=== PATIENT | male | born 1960 | race Caucasian/White ===

== ENCOUNTER → 2019-04-08 | Outpatient (CLI) | payer OTHER | LOC: CAT 08:16 | DX: Z13.6 Encounter for screening for cardiovascular disorders (principal); E78.00 Pure hypercholesterolemia, unspecified; I25.10 Atherosclerotic heart disease of native coronary artery without angina pectoris ==

== ENCOUNTER → 2020-12-28 | Outpatient (CLI) | payer OTHER ==
[~2020-12-28] MED LIST: CHILDREN'S ASPI81 M1 PO; GLUCOPHAGE1000 MG PO; LOSARTAN POTAS100 MG PO; MULTIVITAMINS PO; ROSUVASTATIN CA40 MG PO; VITAMIN C500 M1 PO
== END ==
LOC: LAB 09:50
PROVIDERS: ATTEND Orthopaedic Surgery
DX: Z01.812 Encounter for preprocedural laboratory examination (principal); Z20.822 Contact with and (suspected) exposure to COVID-19

== ENCOUNTER 2021-01-03 06:28 | Observation (INO) | payer OTHER ==
[2020-12-28 09:43] LABS: URINE BILIRUBIN NEGATIVE (Negative); URINE BLOOD NEGATIVE (Negative); URINE CLARITY CLEAR; URINE COLOR YELLOW; URINE GLUCOSE-RANDOM* NEGATIVE (Negative); URINE KETONES NEGATIVE (Negative); URINE LEUKOCYTES-REFLEX NEGATIVE (Negative); URINE NITRITE-REFLEX NEGATIVE (Negative); URINE PROTEIN (DIPSTICK) NEGATIVE (Negative); URINE UROBILINOGEN 0.2 E.U./dl (0.2-1.0)
[2020-12-28 09:47] LABS: HEMATOCRIT 39.7 % (42.0-52.0); HEMOGLOBIN 13.6 gm/dL (14.0-18.0); MCHC 34.3 g/dL (28.0-37.0); MCV 99.2 fL (80.0-100.0); RDW 12.1 % (10.5-14.5); WBC 3.1 thou/uL (4.0-11.0)
[2020-12-28 10:02] LABS: ALBUMIN 4.1 g/dL (3.4-5.0)
[2020-12-28 10:10] LABS: PROTIME 11.4 Seconds (9.3-11.4)
--- NOTE | 2020-12-28 13:26 | EKG ---
[place] [address] [address] [facility] [place] [address] ELECTROCARDIOGRAM REPORT Name: KALPANA FALK Room #: [facility]#: [id number] Admission: Attend Phys: Vic Briones MD Discharge: Date of : 56 Report #: [id number] [facility] Test Date: 2020-12-28 Test Time: 09:26:53 Pat Name: KALPANA FALK Department: Room: Gender: M Binitrotoluene Operator: Akin PERRIN : 1960 Requested By: Vic Briones Order Number: [id number] MD: Kirill Lwa Measurements Intervals [place] Rate: 75 P: 69 ME: 151 QRS: 42 QRSD: 75 T: 38 QT: 362 QTc: 405 Interpretive Statements Sinus rhythm Borderline low voltage, extremity leads RSR' in V1 or V2, right VCD or RVH Borderline ST elevation, anterior leads Baseline wander in lead(s) V1 No previous ECG available for comparison Electronically Signed On 12-28-2020 13:26:23 DIRECTOR ECONOMIC by Kirill Law [email or web address] <ELECTRONICALLY SIGNED> By: Kirill Law MD, [facility] 12/28/20 1326 5 5 Kirill Law MD, [facility] /EPI
[2020-12-28 23:06] LABS: GLYCOHEMOGLOBIN (HGB A1C) 5.9 % (4.8-5.6)
[~2021-01-03] VITALS: Ht 180.3 cm; Wt 81.6 kg
[2021-01-03] VITALS (12 sets, daily range): BP systolic 137–163; BP diastolic 86–100
--- NOTE | ~2021-01-03 | TEE ---
[facility] [address] [place] [address] TRANSESOPHAGEAL ECHOCARDIOGRAM Name: KALPANA FALK Room #: [facility] Hester#: [id number] Admission: 01/03/21 Attend Phys: Vic Briones MD Discharge: 01/04/21 Date of : 56 Report #: [id number] THIS REPORT FOR: cc: Vic Chowdary MD, David P. MD Park, Jin S. MD ~ APPROVED REPORT Study performed: 01/04/2021 08:32:04 EXAM: Comprehensive 2D, Doppler, and color-flow Echocardiogram Patient Location: Bedside Room #: [facility] Status: routine BSA: 2.00 HR: 70 bpm BP: 166/78 mmHg Rhythm: NSR Other Information Study Quality: Good Indications Status post PCI. Heart block, gary. 2D Dimensions RVDd: 33.42 mm IVSd: 9.51 (7-11mm) LVOT Diam: 23.49 (18-24mm) LVDd: 47.36 mm PWd: 10.27 (7-11mm) Ascending Ao: 40.65 (22-36mm) LVDs: 31.19 (25-40mm) Left Atrium: 35.07 (27-40mm) Aortic Root: 39.46 mm Volumes Left Atrial Volume (Systole) Single Plane 4CH: 27.06 mL Single Plane 2CH: 43.87 mL LA ESV Index: 20.00 mL/m2 Aortic Valve AoV Peak Brendan.: 1.20 m/s AO Peak Gr.: 5.73 mmHg LVOT Max P.46 mmHg LVOT Max V: 1.06 m/s ELIZABETH Vmax: 3.82 cm2 [facility] [address] [address] TRANSESOPHAGEAL ECHOCARDIOGRAM Name: KALPANA FALK Room #: 205-P [facility].#: [id number] Admission: 01/03/21 Attend Phys: Jaleesa Delgado Discharge: 01/04/21 Date of : 56 Report #: [id number] Mitral Valve E/A Ratio: 1.8 MV Decel. Time: 169.24 ms MV E Max Brendan.: 0.85 m/s MV A Brendan.: 0.48 m/s MV PHT: 49.08 ms IVRT: 92.27 ms Pulmonary Valve PV Peak Brendan.: 1.00 m/s PV Peak Gr.: 4.03 mmHg Pulmonary Vein P Vein S: 0.61 m/s P Vein A: 0.28 m/s P Vein D: 0.56 m/s P Vein A Dur.: 133.8 msec P Vein S/D Ratio: 1.09 Tricuspid Valve TR Peak Brendan.: 2.40 m/s RAP Estimate: 5.00 mmHg TR Peak Gr.: 23.10 mmHg PA Pressure: 28.00 mmHg Left Ventricle The left ventricle is normal size. There is normal LV segmental wall motion. There is normal left ventricular wall thickness. Left ventricular systolic function is normal. LVEF is 60-65%. Right Ventricle The right ventricle is normal size. The right ventricular systolic function is normal. Atria The left atrium size is normal. The right atrium size is normal. Aortic Valve The aortic valve is normal in structure. No aortic regurgitation is present. There is no aortic valvular stenosis. Mitral Valve The mitral valve is normal in structure. Trace mitral regurgitation. No evidence of mitral valve stenosis. Tricuspid Valve The tricuspid valve is normal in structure. Mild tricuspid regurgitation. Estimated PAP is 25-30mmHg. [facility] [address] [place] [address] TRANSESOPHAGEAL ECHOCARDIOGRAM Name: KALPANA FALK Room #: [facility] ..#: [id number] Admission: 01/03/21 Attend Phys: Jaleesa Delgado Discharge: 01/04/21 Date of : 56 Report #: [id number] Pulmonic Valve The pulmonary valve is normal in structure. Trace pulmonic regurgitation. Great Vessels Aortic root is mildly dilated (3.9cm). Ascending aorta is dilated (4.1cm). IVC is normal in size and collapses >50% with inspiration. Pericardium There is no pericardial effusion. <Conclusion> The left ventricle is normal size. There is normal left ventricular wall thickness. Left ventricular systolic function is normal. The right ventricle is normal size. The left atrium size is normal. The aortic valve is normal in structure. Trace mitral regurgitation. By: 4 Steven Chadwick MD /INF
--- NOTE | 2021-01-03 10:20 | O ---
[facility] [place] [address] OPERATIVE REPORT Name: KALPANA FALK Room #: 150-8 [facility]..#: [id number] Admission: 01/03/21 Attend Phys: Vic Briones MD Discharge: Date of : 56 Report #: [id number] THIS REPORT FOR: cc: Vic Chowdary MD, David P. MD Clymer, David J. MD ~ DATE OF SERVICE: 01/03/2021 PREOPERATIVE DIAGNOSIS: End-stage degenerative arthritis, right hip. POSTOPERATIVE DIAGNOSIS: 1. End-stage degenerative arthritis, right hip. 2. Sudden transient complete heart block. Procedure was terminated, planned right total hip replacement prior to initiating surgery due to new sudden cardiac arrhythmia. HISTORY: This 60-year-old gentleman states that he is generally fit and healthy and has no history of heart disease nor history of chest pain or arrhythmia in the past. I believe his mother does have a history of arrhythmia, but there is no other significant family history. He does have degenerative arthritis with previous left total knee and also previous low back surgery. He is brought to the operating room at this time for planned right total hip replacement. PROCEDURE: The patient was placed under general anesthetic and prophylactic intravenous antibiotics were administered. He seemed to have no problems at this point. He was then turned to the left lateral decubitus position. We were in the process of positioning and padding and preparing to prep the left hip. At this point, he had a sudden abrupt episode of complete heart block. Dr. Joiner, the anesthesiologist, noted that he had complete heart block with T waves present, but a ventricular response in the 20s. He seemed to maintain blood pressure and continued at that time to breathe spontaneously. We paused momentarily for monitoring and suddenly he lost ventricular response with T waves only and no ventricular beats for several seconds. We immediately terminated any further procedure and were prepared to proceed with cardiac resuscitation if necessary. Pacing pads were placed on the chest. After only a few seconds; however, he returned to a normal sinus rhythm with rate in the 70s or 80s and normal blood pressure. We continued to monitor carefully and discussed further options. With the pacing pads in place and no previous history of arrhythmia and what appeared to be an isolated very temporary period of heart block, we considered whether it would be safe to proceed with his surgery today. However, I feel it is more prudent to terminate the procedure and allow time for appropriate cardiac consultation and then reconsider anesthesia and surgery at a later date. I discussed this with the patient's spouse. She is frustrated with the inconvenience of determining the case today, [address] [address] OPERATIVE REPORT Name: DILEEPKALPANA Dhruv Room #: 150-8 [facility] M.R.#: [id number] Admission: 01/03/21 Attend Phys: Vic Briones MD Discharge: Date of : 56 Report #: [id number] but agrees that a safer approach is probably to avoid the anesthetic and surgery today given this brief episode. I have explained that the entire episode was only about 45-60 seconds and he continued to breathe spontaneously and never had an episode of significant loss of blood pressure. There are no other signs or findings which would suggest significant allergic reaction or some other systemic process. He is awakened and will be returned to the recovery room for monitoring and cardiology consultation at this time. <ELECTRONICALLY SIGNED> By: Vic Briones MD 01/03/21 1020 0954 1007 Vic Briones MD /nt
--- NOTE | 2021-01-03 17:51 | NUR ---
PT BACK FROM SOFTWARE VALIDATION TECHNICIAN, R RADIAL ACCESS 1 STENT PLACED TO LAD, COMPRESSION BAND WITH 20CC IN IT, AIR REMOVAL TIME STARTS AT 1830. PT DENIES PAIN AT THIS TIME. PT VS WNL AT THIS TIME, NO QUESTIONS OR CONCERNS NOTED.
[2021-01-04 03:44] LABS: HEMATOCRIT 35.4 % (42.0-52.0); HEMOGLOBIN 12.3 gm/dL (14.0-18.0); MCH 34.6 pg (26.0-34.0); MCHC 34.8 g/dL (28.0-37.0); MCV 99.4 fL (80.0-100.0); RBC 3.56 mil/uL (4.50-6.00); RDW 12.3 % (10.5-14.5); WBC 4.7 thou/uL (4.0-11.0)
--- NOTE | 2021-01-04 03:55 | NUR ---
PT UP WITH SBA, IV SALINE LOCKED, NO C/O PAIN, R RADIAL DRESSING CDI, SLEEPING ON AND OFF THRU THE NOC, WILL CON'T TO MONIOTR PER PPOC.
[2021-01-04 03:59] LABS: ALBUMIN 3.5 g/dL (3.4-5.0); CALCIUM 8.2 mg/dL (8.5-10.1); POTASSIUM 3.7 mmol/L (3.5-5.1); TOTAL BILIRUBIN 0.9 mg/dL (0.2-1.0); TOTAL PROTEIN 5.9 g/dL (6.4-8.2)
[2021-01-04 04:35] VITALS: BP 166/78
--- NOTE | 2021-01-04 06:58 | EKG ---
[address] [address] ELECTROCARDIOGRAM REPORT Name: KALPANA FALK Room #: 205-[facility]..#: [id number] Admission: 01/03/21 Attend Phys: Vic Briones MD Discharge: Date of : 56 Report #: [id number] [facility] Test Date: 2021-01-03 Test Time: 10:15:12 Pat Name: KALPANA FALK Department: Room: [facility] Gender: M Substance Abuse Rn: JACQUES : 1960 Requested By: Dorie Joiner Order Number: [id number] : Kirill Law Measurements Intervals [place] Rate: 63 P: 44 RI: 166 QRS: 65 QRSD: 86 T: 38 QT: 372 QTc: 381 Interpretive Statements Sinus rhythm Probable anteroseptal infarct, recent Compared to ECG 12/28/2020 09:26:53 Myocardial infarct finding now present Right ventricular hypertrophy no longer present ST (T wave) deviation no longer present Electronically Signed On 01-04-2021 6:58:27 PLIER WORKER by Kirill Law [email or web address] <ELECTRONICALLY SIGNED> By: Kirill Law MD, [facility] 01/04/21 0658 1015 1015 Kirill Law MD, [facility] /EPI
--- NOTE | 2021-01-04 07:00 | EKG ---
[address] [place] [address] ELECTROCARDIOGRAM REPORT Name: KALPANA FALK Room #: 205[facility]#: [id number] Admission: 01/03/21 Attend Phys: Vic Briones MD Discharge: Date of : 56 Report #: [id number] [facility] Test Date: 2021-01-03 Test Time: 17:23:27 Pat Name: KALPANA FALK Department: Room: 205 Gender: M Rn Nursery: LAZARO : 1960 Requested By: Steven Chadwick Order Number: [id number] MD: Kirill Law Measurements Intervals [place] Rate: 58 P: 39 OR: 164 QRS: 46 QRSD: 76 T: 41 QT: 403 QTc: 396 Interpretive Statements Sinus rhythm Abnormal R-wave progression, early transition Compared to ECG 01/03/2021 10:15:12 ST (T wave) deviation now present Electronically Signed On 01-04-2021 7:00:24 REMOTELY OPERATED VEHICLE by Kirill Law [email or web address] <ELECTRONICALLY SIGNED> By: Kirill Law MD, [facility] 01/04/21 0700 22 22 Kirill Law MD, [facility] /EPI
--- NOTE | 2021-01-04 07:38 | EKG ---
[address] [address] [address] [facility] [place] [address] ELECTROCARDIOGRAM REPORT Name: KALPANA FALK Room #: 205[facility]#: [id number] Admission: 01/03/21 Attend Phys: Vic Briones MD Discharge: Date of : 56 Report #: [id number] [facility] Test Date: 2021-01-04 Test Time: 07:18:24 Pat Name: KALPANA FALK Department: Room: 205 Gender: M Marketing Database Consultant: IRIS : 1960 Requested By: Steven Chadwick Order Number: [id number] MD: Ap Escalante Measurements Intervals [place] Rate: 61 P: 72 RI: 150 QRS: 57 QRSD: 78 T: 52 QT: 394 QTc: 397 Interpretive Statements Sinus rhythm RSR' in V1 or V2, right VCD Compared to ECG 01/03/2021 17:23:27 No significant changes found Electronically Signed On 01-04-2021 7:38:18 DRAFTER TOPOGRAPHICAL by Ap Escalante [email or web address] <ELECTRONICALLY SIGNED> By: Ap Escalante MD, [facility] 01/04/2138 7 7 Ap Escalante MD, [facility] /EPI
[2021-01-04 07:50] VITALS: BP 150/80
--- NOTE | 2021-01-04 09:16 | CATHLAB ---
[facility] [address] [place] [place] [address] INVASIVE PROCEDURE REPORT Name: KALPANA FALK Room #: 205-P ADM Tiffanie MYomairaRYomaira#: [id number] Admission: 01/03/21 Attend Phys: Vic Briones MD Discharge: Date of : 56 Report #: [id number] THIS REPORT FOR: cc: Vic Chowdary MD, David P. MD Park, Jin S. MD ~ APPROVED REPORT Study performed: 01/03/2021 15:11:35 Patient Details Patient Status: In-Patient Room #: 205 The patient is a 60 year-old male Event Personnel Steven Chadwick Director Of Contracts, Brenda Belcher RTR Monitor, Elijah Tang RTR Scaffolder, Marilee Valle RTR Scrub, Jesusita Grewal RN order builder loader Performed Art Access - R radial artery Left Heart Cath w/or w/o Coronaries [id number] [facility] Place w/wo Plasty Single LAD 007888 Hemostasis w/ Mynx 54402 Initial Mod Sed Same Phys/QHP Gr5y 937925 67410 Mod Sed Same Phys/QHP Ea 340439 Indication Arrhythmia, Pre-op clearance, While undergoing induction of anesthesia for a total hip replacement, the patient developed transient heart block. Risk Factors Hypercholesterolemia, Hypertension, Diabetes Procedure Narrative The Right Wrist^ was infiltrated with 1% Lidocaine subcutaneous anesthesia. A TRANSRADIAL SLENDER 6F GLIDESHEATH KIT #[id number] sheath was inserted into the Right Radial Artery^. Coronary angiography was performed using coronary diagnostic catheters. The right coronary system was accessed and visualized with a 5FR JR 4 #[id number] catheter. The left coronary system was accessed and visualized with a 5FR JL 3.5 #197668 catheter. The left ventricle was accessed and visualized with a 5FR PIG 145 ANGLED #[id number] catheter. Left ventriculogram was performed in 30 degree projection. The patient tolerated the procedure well and there were no complications associated with the [facility] [address] [place] [address] INVASIVE PROCEDURE REPORT Name: KALPANA FALK Room #: 205-P [facility]#: [id number] Admission: 01/03/21 Attend Phys: Jaleesa Delgado Discharge: Date of : 56 Report #: [id number] procedure. Intraoperative Conscious Sedation Sedation start time: 15:40 Case end Time: 16:46 Fentanyl 100 mcg Versed 2 mg Fluoro Time: 18.50 minutes Dose: DAP 00749.80 cGycm2 2417 mGy Contrast Type and Amount: Omnipaque 215 ml Coronary Angiography The patient's coronary anatomy is right dominant. Diagnostic Cath Left Main The left main artery is a large-caliber vessel, patent with no flow-limiting lesions. LAD The LAD is a moderate-sized caliber vessel, traverses the anterior wall and wraps around the apex. The proximal segment is calcified with there is severe stenosis, 80%. There is mild diffuse disease in the midsegment. Diagonal 1 This is a small to moderate-sized caliber vessel, patent with no flow-limiting lesions. Diagonal 2 This is a small to moderate-sized caliber vessel, patent with no flow-limiting lesions. Circumflex The left circumflex artery is a moderate-sized caliber vessel with mild diffuse disease in the midsegment, 30%. OM1 This is a moderate-sized caliber vessel, patent with no flow-limiting lesions. OM2 This is a moderate-sized caliber vessel, patent with no flow-limiting lesions. OM3 This is a moderate-sized caliber vessel, patent with no flow-limiting lesions. Right Coronary The RCA is dominant vessel, with mild diffuse disease in the midsegment, 30%. R PDA This is a moderate-sized caliber vessel, patent with no flow-limiting lesions. RPLV This is a moderate-sized caliber vessel, patent with no flow-limiting lesions. Left Ventriculography The left ventricle is normal in size with normal contractility. The left ventricular ejection fraction is estimated to be 60%. Hemodynamics [facility] [address] [place] [address] INVASIVE PROCEDURE REPORT Name: KALPANA FALK Room #: 205-P ADM IN M.R.#: [id number] Admission: 01/03/21 Attend Phys: Jaleesa Delgado Discharge: Date of : 56 Report #: [id number] The aortic pressure is 159/86 mmHg with a mean of 118 mmHg. The left ventricular pressure is 150/8 mmHg with a mean of mmHg. The left ventricular end diastolic pressure is 20 mmHg. PCI Technique Lesion Percutaneous coronary intervention was performed on the proximal left anterior descending artery segment. The lesion stenosis prior to intervention was 80% with ANDREW 3 flow. A VISTA 6FR JL 3.5 #[id number] Guide Catheter was used to engage the ostium. A Luge Wire .014 x 182CM #[id number] Interventional Guidewire was used to cross the lesion. BALLOON DILATION A Balloon catheter Euphora RX 2.5 x 15 #[id number] was inserted and inflated up to 12.00atm for 13seconds. Additional Inflation: 14.00atm for 14seconds. Additional Inflation: 14.00atm for 18seconds. Additional Inflation: 14 Lei for 10 Seconds. STENT DEPLOYMENT A drug-eluting stent RESOLUTE XIOMY RX 3.0 X 18 #[id number] was inserted and inflated up to 12.00atm for 17seconds. POST STENT DEPLOYMENT BALLOON DILATION A Balloon catheter TREK NC RX 3.25 X 12 #[id number] was inserted and inflated up to 18.00atm for 17seconds. Additional Inflation: 18.00atm for 21seconds. Final angiography reveals 5 % stenosis with ANDREW 3 flow. Conclusion 1. Successful insertion of a drug-eluting stent into the proximal LAD stenosis. 2. There is mild disease in the left circumflex and RCA. 3. There is normal LV systolic function. 4. Recommend dual antiplatelet therapy and aggressive risk factor management. <ELECTRONICALLY SIGNED> By: Steven Chadwick MD 01/04/21915 5 5 Steven Chadwick MD /INF
[2021-01-04] MEDS ORDERED: EFFIENT10 MG PO ×2 (09:23→09:36)
[2021-01-04] MEDS ORDERED: ASPIRIN325 PO (09:23)
[2021-01-04 11:08] VITALS: BP 150/80
--- NOTE | 2021-01-04 11:17 | NUR ---
ASSUMED CARE SHIFT CHANGE. ASSESSMETN CHARTED.MEDS GIVEN. VSS. DENIES PAIN. UP WALKING TOLERATING FAIR, LIMPS FROM HIP DISCOMFORT. DENIES NEED FOR PAIN MEDS. EVENT MONITOR PLACED PER CARDIOLOGY. DC ORDERS IMPLEMENTED. DISCUSSED WITH PT COMMUNICATES UNDERSTANDING. IV REMOVED TELE DC'D. PT TO LEAVE WITH ALL BELONGINGS.
--- NOTE | 2021-01-07 16:13 | HC ---
[facility] [place] [address] CONSULTATION Name: KALPANA FALK Room #: [facility] Tiffanie Hester#: [id number] Admission: 01/03/21 Attend Phys: Vic Briones MD Discharge: 01/04/21 Date of : 56 Report #: [id number] THIS REPORT FOR: cc: Vic Chowdary MD, David P. MD Couchonnal, Luis F. MD ~ CARDIOLOGY CONSULTATION REASON FOR CONSULTATION: Transient complete heart block. HISTORY OF PRESENT ILLNESS: The patient is a 60-year-old male with a history of type 2 diabetes, hypertension, hyperlipidemia, and coronary artery disease as evidenced by a coronary calcium score in 2019 that was elevated at 500. The patient was here today for elective hip replacement surgery. He was induced under general anesthesia and was being positioned for the procedure where he developed transient complete heart block. This lasted approximately 30 seconds. It resolved after he was repositioned. A preoperative EKG showed sinus rhythm with no ischemic changes and a repeat EKG post-incident showed sinus rhythm with no ischemic changes and a normal MO and QRS duration. Speaking with the patient, he denies any chest pain or chest tightness. He does report, he had a normal stress test approximately 2 years ago at [facility]. He denies any PND or orthopnea. He does report he had a prior syncopal episode in the setting of having diarrhea on the toilet. PAST MEDICAL HISTORY: As above. SOCIAL HISTORY: Does not smoke. FAMILY HISTORY: Noncontributory. ALLERGIES: None. MEDICATIONS: Have been reviewed. REVIEW OF SYSTEMS: A 12-point review of system was negative other than what I mentioned above. PHYSICAL EXAMINATION: VITAL SIGNS: Temperature 36.4, pulse 84, respiration 16, blood pressure 160/98, sats 100%. GENERAL: No acute distress. HEENT: Oropharynx is clear. NECK: Supple, with no thyromegaly. HEART: Regular rate and rhythm with no murmurs, rubs or gallops. LUNGS: Clear to auscultation bilaterally. ABDOMEN: Soft, nontender, nondistended with no hepatosplenomegaly. EXTREMITIES: Show no clubbing, cyanosis or edema. [facility] [address] [place] [address] CONSULTATION Name: KALPANA FALK Room #: [address] [place] [address].#: [id number] Admission: 01/03/21 Attend Phys: Vic Briones MD Discharge: 01/04/21 Date of : 56 Report #: [id number] NEUROLOGIC: Cranial nerves 2-12 are intact. PSYCHIATRIC: He is appropriate. LABORATORY DATA: White count 3, hemoglobin 13, platelets 146. Coags: INR 1.1. Chemistry: Sodium 138, potassium 4.0, creatinine 1.0. Hemoglobin A1c is 5.9. Glucose is 118. He is COVID negative. His EKG is as per above. ASSESSMENT AND PLAN: 1. Transient heart block. 2. Hypertension. 3. Diabetes mellitus. 4. Coronary artery disease. In summary, the patient had transient heart block during induction of his surgery. This may represent a vagal response given that he does have a history of prior vagal episodes in the past. However, I cannot exclude coronary ischemia. In order to definitively rule this out, I have recommended that he undergo diagnostic cardiac catheterization today. We discussed the details of the procedure including the risks, which include but not limited to bleeding, stroke, VT. He and his understand these risks and are willing to proceed. If he were to require a stent then obviously his surgery will need to be postponed as he will need to be on antiplatelet therapy for several months. However, if his coronaries are not requiring intervention, then we can monitor him overnight and proceed with surgery tomorrow. Thank you for allowing us to participate in his care. <ELECTRONICALLY SIGNED> By: Jagjit Dickson MD 01/07/21 1613 1103 1139 Jagjit Dickson MD /nt
--- NOTE | 2021-01-08 14:34 | 2DMMODE ---
[facility] [place] [address] 2 D/M-MODE ECHOCARDIOGRAM Name: KALPANA FALK Room #: 205-[facility] M.R.#: [id number] Admission: 01/03/21 Attend Phys: Vic Briones MD Discharge: 01/04/21 Date of : 56 Report #: [id number] THIS REPORT FOR: cc: Vic Chowdary MD, David P. MD Park, Jin S. MD Monger, Jenna TELEPHONE SERVICE REPRESENTATIVE ~ Sex/Age : M/60Y Height/Weight : 177.8cm/81.6kg Patient Name : KALPANA FALK Study Date : 2021-01-04 BSA : 2.00? Requesting Name : ECHO STANDARD W/O CONTRAST Date of : 1960 Request Doctor : KEL^EBONY Department : CARD --< Approved Report > Study performed: 01/04/2021 08:32:04 EXAM: Comprehensive 2D, Doppler, and color-flow Echocardiogram Patient Location: Bedside Room #: 205 Status: routine BSA: 2.00 HR: 70 bpm BP: 166/78 mmHg Rhythm: NSR Other Information Study Quality: Good Indications Status post PCI. Heart block, gary. 2D Dimensions RVDd: 33.42 mm IVSd: 9.51 (7~11mm) LVOT Diam: 23.49 (18~24mm) LVDd: 47.36 mm PWd: 10.27 (7~11mm) Ascending Ao: 40.65 (22~36mm) LVDs: 31.19 (25~40mm) Left Atrium: 35.07 (27~40mm) Aortic Root: 39.46 mm Volumes [facility] [address] [place] [address] 2 D/M-MODE ECHOCARDIOGRAM Name: KALPANA FALK Room #: [facility].#: [id number] Admission: 01/03/21 Attend Phys: Jaleesa Delgado Discharge: 01/04/21 Date of : 56 Report #: [id number] Left Atrial Volume (Systole) Single Plane 4CH: 27.06 mL Single Plane 2CH: 43.87 mL LA ESV Index: 20.00 mL/m2 Aortic Valve AoV Peak Brendan.: 1.20 m/s AO Peak Gr.: 5.73 mmHg LVOT Max P.46 mmHg LVOT Max V: 1.06 m/s ELIZABETH Vmax: 3.82 cm2 Mitral Valve E/A Ratio: 1.8 MV Decel. Time: 169.24 ms MV E Max Brendan.: 0.85 m/s MV A Brendan.: 0.48 m/s MV PHT: 49.08 ms IVRT: 92.27 ms Pulmonary Valve PV Peak Brendan.: 1.00 m/s PV Peak Gr.: 4.03 mmHg Pulmonary Vein P Vein S: 0.61 m/s P Vein A: 0.28 m/s P Vein D: 0.56 m/s P Vein A Dur.: 133.8 msec P Vein S/D Ratio: 1.09 Tricuspid Valve TR Peak Brendan.: 2.40 m/s RAP Estimate: 5.00 mmHg TR Peak Gr.: 23.10 mmHg PA Pressure: 28.00 mmHg Left Ventricle The left ventricle is normal size. There is normal LV segmental wall motion. There is normal left ventricular wall thickness. Left ventricular systolic function is normal. LVEF is 60-65%. Right Ventricle The right ventricle is normal size. The right ventricular systolic function is normal. Atria The left atrium size is normal. The right atrium size is normal. Aortic Valve The aortic valve is normal in structure. No aortic regurgitation is present. There is no [place] [address] 2 D/M-MODE ECHOCARDIOGRAM Name: KALPANA FALK Room #: 205-P [facility]#: [id number] Admission: 01/03/21 Attend Phys: Jaleesa Delgado Discharge: 01/04/21 Date of : 56 Report #: [id number] Mitral Valve The mitral valve is normal in structure. Trace mitral regurgitation. No evidence of mitral valve stenosis. Tricuspid Valve The tricuspid valve is normal in structure. Mild tricuspid regurgitation. Estimated PAP is 25-30mmHg. Pulmonic Valve The pulmonary valve is normal in structure. Trace pulmonic regurgitation. Great Vessels Aortic root is mildly dilated (3.9cm). Ascending aorta is dilated (4.1cm). IVC is normal in size and collapses >50% with inspiration. Pericardium There is no pericardial effusion. <Conclusion> The left ventricle is normal size. There is normal left ventricular wall thickness. Left ventricular systolic function is normal. The right ventricle is normal size. The left atrium size is normal. The aortic valve is normal in structure. Trace mitral regurgitation. Electronically Approved : 01/08/2021 14:32:48 By: [id number] Steven Chadwick MD /WENDI
== END 2021-01-04 11:45 | disposition home or self-care (01) ==
LOC: OR → TBA 06:29 → OR 08:42 → 2N 13:26
PROVIDERS: Internal Medicine Cardiovascular Disease; ADMIT Orthopaedic Surgery; ATTEND Orthopaedic Surgery
DX: I25.10 Atherosclerotic heart disease of native coronary artery without angina pectoris (principal); I44.2 Atrioventricular block, complete; E78.00 Pure hypercholesterolemia, unspecified; E11.9 Type 2 diabetes mellitus without complications; I10 Essential (primary) hypertension; M16.11 Unilateral primary osteoarthritis, right hip; Z79.82 Long term (current) use of aspirin; Z79.899 Other long term (current) drug therapy
CPT/HCPCS: 50010; 50101; 62110; 62900; 70005

== ENCOUNTER → 2021-07-23 | Outpatient (CLI) | payer OTHER ==
[~2021-07-23] MED LIST changes: +ASPIRIN325 PO; +BENICAR40 MG PO; +EFFIENT10 MG PO; -GLUCOPHAGE1000 MG PO; +LEXAPRO 10 MG T10 M2 PO; +METFORMIN HCL500 MG PO; +MULTIVITAMIN1 EACH PO; -MULTIVITAMINS PO
[2021-07-23 13:24] LABS: HEMATOCRIT 37.9 % (42.0-52.0); HEMOGLOBIN 12.7 gm/dL (14.0-18.0); MCH 33.6 pg (26.0-34.0); MCHC 33.5 g/dL (28.0-37.0); MCV 100.2 fL (80.0-100.0); RBC 3.79 mil/uL (4.50-6.00); RDW 12.4 % (10.5-14.5); WBC 3.2 thou/uL (4.0-11.0)
[2021-07-23 13:35] LABS: ALBUMIN 3.9 g/dL (3.4-5.0); POTASSIUM 4.5 mmol/L (3.5-5.1)
[2021-07-23 13:52] LABS: URINE BILIRUBIN NEGATIVE (Negative); URINE BLOOD NEGATIVE (Negative); URINE CLARITY CLEAR; URINE COLOR YELLOW; URINE GLUCOSE-RANDOM* TRACE (Negative); URINE KETONES NEGATIVE (Negative); URINE LEUKOCYTES-REFLEX NEGATIVE (Negative); URINE NITRITE-REFLEX NEGATIVE (Negative); URINE PROTEIN (DIPSTICK) NEGATIVE (Negative); URINE SPECIFIC GRAVITY 1.025 (1.005-1.035); URINE UROBILINOGEN 0.2 E.U./dl (0.2-1.0)
[2021-07-23 13:58] LABS: INR 1.05; PROTIME 11.4 Seconds (10.5-12.1)
[2021-07-23 22:06] LABS: GLYCOHEMOGLOBIN (HGB A1C) 6.4 % (4.8-5.6)
== END ==
LOC: PAC 12:41
PROVIDERS: ATTEND Orthopaedic Surgery
DX: E11.9 Type 2 diabetes mellitus without complications (principal); I10 Essential (primary) hypertension

== ENCOUNTER → 2021-07-30 | Outpatient (CLI) | payer OTHER | LOC: LAB | PROVIDERS: ATTEND Student in an Organized Health Care Education/Training Program | DX: Z01.812 Encounter for preprocedural laboratory examination (principal); Z20.822 Contact with and (suspected) exposure to COVID-19 ==

== ENCOUNTER 2021-08-01 06:36 | Observation (INO) | payer OTHER ==
[~2021-08-01] VITALS: Ht 205.7 cm; Wt 81.3 kg
[2021-08-01 07:01] VITALS: BP 161/92
--- NOTE | 2021-08-01 10:00 | O ---
[facility] [place] [address] [place] [address] OPERATIVE REPORT Name: KALPANA FALK Room #: 150-4 [facility]..#: [id number] Admission: 08/01/21 Attend Phys: Vic Briones MD Discharge: Date of : 56 Report #: [id number] THIS REPORT FOR: cc: Vic Chowdary MD, David P. MD Clymer, David J. MD ~ DATE OF SERVICE: 08/01/2021 PREOPERATIVE DIAGNOSIS: Right hip degenerative arthritis. POSTOPERATIVE DIAGNOSIS: Right hip degenerative arthritis. PROCEDURE: Right total hip arthroplasty. SURGEON: Vic Briones MD INDICATIONS: This 61-year-old gentleman with moderately severe degenerative arthritis involving the right hip. Complains of persistent and progressive hip pain. Symptoms are unresponsive to conservative measures. He has elected to go ahead with total hip replacement. DESCRIPTION OF PROCEDURE: The patient was taken to the operating room where he was placed under general anesthesia. Prophylactic intravenous antibiotics were administered. He was turned to the left lateral decubitus position. The right hip, thigh and leg were meticulously prepped and draped. A slightly curving posterolateral skin incision was made centered over the greater trochanter. This was carried through fascia and gluteus to expose the posterior aspect of the hip joint. The short external rotators and capsule were taken down and preserved and tagged with several #1 FiberWire sutures. The hip was dislocated posteriorly. Marked degenerative change on both the femoral head and acetabulum was noted. A femoral neck osteotomy was performed. The femoral canal was prepared using reamers and hand broaches. The Daley and Nephew hip system was utilized. A size 14 femoral stem seemed to fit nicely. The neck was trimmed down to an appropriate level. The trial stem was removed and attention directed to the acetabulum. The acetabulum was sequentially reamed, gradually advancing to a 58 mm reamer. The Daley and Nephew 3 hole StikTite shell was selected using a 58 mm size. This was impacted into his anatomic acetabulum, which placed this at about 45 degrees off of vertical and 20 degrees of anteversion. It seated nicely and appeared to be secure. In addition, three cancellous screws were placed through the apical holes, engaging good periacetabular bone adding nicely to stability. A 40 mm polyethylene liner was then inserted placing the 20-degree elevated rim at about the 10 o'clock posterior position. This also seated nicely and appeared to be secure. A trial reduction was performed using the size 14 femoral stem and a high offset neck angle. A +0 neck length seemed to fit nicely with this trial. Alignment, range of motion, stability and leg length were assessed and felt to be satisfactory. The trial [address] [address] OPERATIVE REPORT Name: KALPANA FALK Room #: 150-4 [facility] M.R.#: [id number] Admission: 08/01/21 Attend Phys: Vic Briones MD Discharge: Date of : 56 Report #: [id number] stem was removed and the permanent Daley and Nephew size 14 Synergy porous high offset femoral stem was selected. This was impacted in the canal, placing this in about 20 degrees of anteversion. It seated nicely and appeared to be secure. An Oxinium 40 mm head with a +0 neck length sleeve was selected. This was impacted on the Pitt taper and seated nicely and appeared to be secure. The hip was reduced. Alignment, range of motion, stability and leg length were assessed and felt to be satisfactory. The capsule and short external rotators were repaired back to bone using #1 FiberWire sutures passed through small drill holes in the greater trochanter. This also added nicely to hip stability. A single Hemovac was left in the wound exiting through a separate stab incision. The fascia was then closed with multiple #1 Vicryl sutures. The subcutaneous tissues were closed with 0 Monocryl. The skin was closed with skin melba. A sterile dressing was applied. The patient was awakened and returned to recovery room in good condition. <ELECTRONICALLY SIGNED> By: Vic Briones MD 08/01/21 [id number] Vic Briones MD /nt
--- NOTE | 2021-08-01 15:06 | NUR ---
ARRIVED TO 4S POST RIGHT HIP REPLACEMENT. AT BEDSIDE. FABIOLA DRESSING TO RIGHT HIP-SMALL AMOUNT OF RED BLOOD NOTED ON DRESSING. HEMOVAC TO RIGHT HIP.LEFT FOREARM IV WITH LR @ 100 MLS/HR. LEFT EAR SCOPE PATCH. BEDREST. UNABLE TO TOLERATE PT TODAY DUE TO NAUSEA, ZOFRAN GIVEN.
[2021-08-01 15:59] VITALS: BP 149/83
[2021-08-01 19:27] VITALS: BP 142/68
[2021-08-02 04:28] LABS: CALCIUM 7.8 mg/dL (8.5-10.1); MAGNESIUM 1.7 mg/dL (1.8-2.4); POTASSIUM 4.3 mmol/L (3.5-5.1)
[2021-08-02 04:31] LABS: ABSOLUTE NEUTROPHILS 5.3 thou/uL (1.4-8.2); BASOPHILS 0.2 % (0.0-2.0); HEMATOCRIT 33.2 % (42.0-52.0); HEMOGLOBIN 11.5 gm/dL (14.0-18.0); LYMPHOCYTES 5.5 % (24.0-44.0); MCH 34.5 pg (26.0-34.0); MCHC 34.5 g/dL (28.0-37.0); MCV 99.9 fL (80.0-100.0); MONOCYTES 9.9 % (1.0-8.0); PLATELET COUNT 119 thou/uL (150-400); POLYS 84.4 % (36.0-66.0); RBC 3.32 mil/uL (4.50-6.00); RDW 12.5 % (10.5-14.5); WBC 6.3 thou/uL (4.0-11.0)
[2021-08-02 04:38] VITALS: BP 134/72
--- NOTE | 2021-08-02 04:39 | NUR ---
ASSUMED CARE OF PT AT 1900. BEDSIDE REPOT RECIEVED. ELZBIETA ASSESSMENT COMPLETE. 300 OUT OF HEMOVAC. SECURE AND ATTACHED TO PTS DOROTA ROB. FABIOLA DSG CDI. IVF INFUSING. MEDS ADMINISTERED ORDED.NO SWELLING NOTED IN R HIP AREA. PEADAL PULSES 2+. L FA PIV CDI PATENT C FLUDIS INFUSING ORDERED C/O 4-8/10 R HIP PAIN C MOVEMENT AND AFTER MOVEMENT. DENIES ANY OTHER NEEDS AT THIS TIME. CALL LIGHT IN REACH. .
--- NOTE | 2021-08-02 08:10 | NUR ---
I CONCUR WITH THE NOTES AND ASSESSMENT BY ALEXANDER VALENTE.
[2021-08-02 08:56] VITALS: BP 148/85
--- NOTE | 2021-08-02 12:05 | NUR ---
ASSESMENT: CM REVIEWED CHART AND SPOKE WITH PATIENT AT THE BEDSIDE. PT IS ALERT AND ORIENTED X4. PT IS S/P THR. PT REPORTS LIVING IN A HOUSE WITH HIS AND DAUGHTER. PT REPORTS HAVING ABOUT 1 STEP TO ENTER THE HOME BUT A FULL FLIGHT OF STEPS TO HIS BEDROOM WITH HANDRAILS. PT REPORTS HE HAS A WALKER AT HOME. PT STATES THEY HAVE A WALK IN SHOWER WITH A SHOWER BENCH. PT REPORTS HE HAS NOT HAD HH IN THE PAST NOR HAS HE BEEN TO A SNF. PT IS WORKING WITH THERAPY TODAY AND TO WORK ON STAIRS THIS EVENING. POSSIBLE DISCHARGE LATER TODAY IF HE DOES WELL WITH THERAPY BUT LIKELY DISCHARGE HOME TOMORROW WITH FAMILY ASSIST. PT SHOULD HAVE NO NEEDS FROM CM AT THE TIME OF DISCHARGE. CM WILL CONTINUE TO FOLLOW.
[2021-08-02 15:44] VITALS: BP 119/67
--- NOTE | 2021-08-02 15:47 | NUR ---
A/O X 4. ROOM AIR. ONE ASSIST WITH WALKER. RIGHT HIP FABIOLA DRESSING IN PLACE, HEMOVAC PULLED, 200 MLS OUTPUT, GAUZE AND PRESSURE APPILED, BILATERAL TEDS ON AND SCDS. TOOK OF SCOPE PATCH HE SAID ITS NOT NEEDED ANYMORE. TOLERATING DIET WELL. WALKED IN HALLWAYS WITH PT. PATIENT IS WANTING TO D/C HOME TOMORROW ONCE PAIN IS BETTER. NORCO GIVEN PRN FOR RIGHT HIP PAIN
--- NOTE | 2021-08-03 02:41 | NUR ---
ASSUMED CARE OF PT AT 1930. REPORT RECIEVED. ELZBIETA ASSESSMENT COMPLETE. PT A0X4, PLAN TO DISCHARGE TOMORROW. R HIP DRSG CDI. NO SWELLING, REDNESS OR EXCESSIVE DRAINING OBSERBED. LAC PIV SECURE AND SALINE LOCKED. MEDS AND PAIN MEDS ADMINISTERED ORDERED. ALL NEEDS MET, HOURLY ROUNDING ONGOING, CALL LIGHT IN REACH.
[2021-08-03 07:46] VITALS: BP 114/70
--- NOTE | 2021-08-03 11:14 | NUR ---
ASSUMED PT CARE THIS AM. PT IS ALERT & ORIENTED X4. PT HAS IV SITE ON LFA SALINE LOCKED. PT IS ON ROOM AIR. PT HAS FABIOLA DRESSING, DOROTA MURRAY, ARSLAN. PT IS ACCUCHECK ACHS. PT TOLERATED DIET AND MEDICATION WELL. PT WAS WORKING WITH PHYSICAL THERAPY THIS AM. GIVEN PAIN MEDICATION PRIOR WORKING WITH PHYSICAL THERAPY. PER PHYSICAL THERAPY OK AND SAFE FOR DC. PT IS CURRENTLY SITTING ON THE CHAIR. WILL CONTINUE TO MONITOR PT. FOLLOW POC.
[2021-08-03 11:23] VITALS: BP 114/70
== END 2021-08-03 13:03 | disposition home or self-care (01) ==
LOC: OR → TBA 06:36 → OR 06:36 → 4S 12:05 → OR 12:05 → 4S 08-03 13:03
PROVIDERS: Nurse Practitioner; ADMIT Orthopaedic Surgery; ATTEND Orthopaedic Surgery
DX: M16.11 Unilateral primary osteoarthritis, right hip (principal); I10 Essential (primary) hypertension; E11.9 Type 2 diabetes mellitus without complications; E78.5 Hyperlipidemia, unspecified; I25.10 Atherosclerotic heart disease of native coronary artery without angina pectoris; G47.30 Sleep apnea, unspecified; Z79.899 Other long term (current) drug therapy
CPT/HCPCS: 50010; 50101; 50382; 50414; 51412; 53000; 53368; 56521; 56525; 56530; 57095; 57103; 62110; 62900; 70005